=== PATIENT | female | born 1960 | race Hispanic/Latino ===

== ENCOUNTER 2019-09-27 10:07 | Emergency (ER) | payer SELFPAY ==
[2019-09-27] MEDS ORDERED: MORPHINE 4 MG/ML SYR ONE (10:53)
[2019-09-27] MEDS ORDERED: ONDANSETRON 4 MG/2 ML VIAL ONE (10:53)
[2019-09-27] MEDS ORDERED: dexAMETHasone 10 MG/ML VIAL ONE (11:11)
[2019-09-27] MEDS ORDERED: KETOROLAC 30 MG/ML INJ ONE (11:11)
[2019-09-27] MEDS ORDERED: DIAZEPAM 10 MG/2 ML INJ SYRINGE ONE (11:46)
--- NOTE | 2019-09-27 12:32 | EDPHYS ---
Physician Documentation [facility] Name: Philomena Hi Age: 58 yrs Sex: Female : 1960 Arrival Date: 09/27/2019 Time: 10:08 Bed 7 Private MD: ED Physician Nabil Selby HPI: 09/27 11:04 This 58 yrs old Female presents to ER via Ambulatory with complaints of Back jmm Pain - spasms. 11:04 The patient presents with pain that is acute. Onset: The symptoms/episode jmm began/occurred gradually, 1 week(s) ago. The pain radiates to the left leg. Associated signs and symptoms: Pertinent negatives: dysuria, fever, hematuria, incontinence, numbness, tingling, weakness. This is a 58 year old female with a history of of chronic back pain, DM that presents to the ED with complaints of lower back pain which radiates down the left leg. Patient has a history of bulging discs. Denies bowel or bladder issues. . Historical: - Allergies: 10:26 No Known Allergies; ph - PMHx: 10:26 Back pain; Diabetes - NIDDM; ph - Immunization history:: Adult Immunizations up to date. - Social history:: Smoking status: Patient/guardian denies using tobacco. - Ebola Screening: : No symptoms or risks identified at this time. ROS: 11:04 Constitutional: Negative for fever, chills, and weight loss, Cardiovascular: Negative jmm for chest pain, palpitations, and edema, Respiratory: Negative for shortness of breath, cough, wheezing, and pleuritic chest pain. 11:04 Back: Positive for pain with movement. 11:04 MS/extremity: Positive for pain. 11:04 All other systems are negative. Exam: 11:04 Constitutional: This is a well developed, well nourished patient who is awake, alert, jmm and in no acute distress. Head/Face: atraumatic. Eyes: EOMI, no conjunctival erythema appreciated ENT: Moist Mucus Membranes Neck: Trachea midline, Supple Chest/axilla: Normal chest wall appearance and motion. Cardiovascular: Regular rate and rhythm. No edema appreciated Respiratory: Normal respirations, no respiratory distress appreciated Abdomen/GI: Non distended, soft Skin: General appearance color normal 11:04 Back: pain, that is moderate, of the left low back and left mid back, vertebral tenderness, is not appreciated, muscle spasm. 11:04 Neuro: Orientation: is normal, Mentation: is normal, Memory: is normal, Motor: is normal. 11:04 Psych: Behavior/mood is pleasant, cooperative. Vital Signs: 10:25 BP 147 / 109; Pulse 135; Resp 18; Temp 97.8; Pulse Ox 98% on R/A; Weight 99.79 kg; ph 11:26 BP 136 / 80; Pulse 85; Resp 18; Pulse Ox 100% on R/A; sg MDM: 10:33 Patient medically screened. [facility] 12:28 Data reviewed: vital signs, nurses notes. Counseling: I had a detailed discussion with sergio the patient and/or guardian regarding: the historical points, exam findings, and any diagnostic results supporting the discharge/admit diagnosis, the need for outpatient follow up, to return to the emergency department if symptoms worsen or persist or if there are any questions or concerns that arise at home. ED course: Pain reduced in the ED. Patient is able to ambulate. I do not suspect cord compression or cauda equina. Patient is advised to follow up with pcp/ pain management. patient otherwise given strict return precautions. Patient understood and agrees with the plan of care. . 07 10:46 Order name: Saline Lock; Complete Time: 11:02 [facility] Administered Medications: 10:46 CANCELLED (different dose used): morphine 10 mg IVP once; RASS on ADMIN: Combtv4, Very jmm Agttd3, Agttd2, Rstlss1, AlertClm0, Drwsy-1, Lt Sdtn-2, Mod Sdtn-3, Dp Sdtn-4, UnArsble-5 11:02 Drug: Zofran 4 mg Route: IVP; Site: left forearm; hb 11:30 Follow up: Response: No adverse reaction hb 11:02 Drug: morphine 8 mg Route: IVP; Site: left forearm; hb 11:30 Follow up: Response: No adverse reaction hb 11:13 Drug: Ketorolac 30 mg Route: IVP; Site: left forearm; hb 11:45 Follow up: Response: No adverse reaction hb 11:13 Drug: Decadron - Dexamethasone 10 mg Route: IVP; Site: left forearm; hb 11:45 Follow up: Response: No adverse reaction hb 11:45 Drug: Valium 5 mg Route: IVP; Site: left forearm; sg 12:19 Follow up: Response: No adverse reaction hb Disposition: 09/28 07:17 Co-signature as Attending Physician, Nabil Selby MD I agree with the assessment and kdr plan of care. Disposition: 09/27/19 12:31 Discharged to Home. Impression: Low back pain, Sciatica, left side. - Condition is Stable. - Discharge Instructions: Back Pain, Adult, Sciatica. - Medication Reconciliation Form, Thank You Letter, Antibiotic Education, Prescription Opioid Use form. - Follow up: Jas Friend DO; When: 2 - 3 days; Reason: Recheck today's complaints, Continuance of care, Re-evaluation by your physician. Follow up: Bobby Daley MD; When: 2 - 3 days; Reason: Recheck today's complaints, Continuance of care, Re-evaluation by your physician. Signatures: Poli Newsome RN RN sg Rittger, Kevin, MD MD kdr Mickail, Joel, PA PA [facility] Caridad Head RN RN Raquel Anders RN RN Corrections: (The following items were deleted from the chart) 09/27 10:46 10:46 morphine 10 mg IVP once; RASS on ADMIN: Combtv4, Very Agttd3, Agttd2, Rstlss1, jmm AlertClm0, Drwsy-1, Lt Sdtn-2, Mod Sdtn-3, Dp Sdtn-4, UnArsble-5 ordered. [facility] 12:56 12:31 09/27/2019 12:31 Discharged to Home. Impression: Low back pain; Sciatica, left hb side. Condition is Stable. Forms are Medication Reconciliation Form, Thank You Letter, Antibiotic Education, Prescription Opioid Use. Follow up: Jas Friend; When: 2 - 3 days; Reason: Recheck today's complaints, Continuance of care, Re-evaluation by your physician. Follow up: Bobby Daley; When: 2 - 3 days; Reason: Recheck today's complaints, Continuance of care, Re-evaluation by your physician. [facility]
--- NOTE | 2019-09-27 12:32 | ER ---
Nurse's Notes [facility] Name: Philomena Hi Age: 58 yrs Sex: Female : 1960 Arrival Date: 09/27/2019 Time: 10:08 Bed 7 Private MD: Diagnosis: Low back pain;Sciatica, left side Presentation: 09/27 10:23 Presenting complaint: Patient states: Low back pain x 1 week, radiates down R leg, hx ph of slipped disk, has taken Tramadol and Flexaril w/ no relief. Transition of care: patient was not received from another setting of care. Onset of symptoms was September 27, 2019. Risk Assessment: Do you want to hurt yourself or someone else? Patient reports no desire to harm self or others. Initial Sepsis Screen: Does the patient meet any 2 criteria? HR > 90 bpm. Does the patient have a suspected source of infection? No. Patient's initial sepsis screen is negative. 10:23 Method Of Arrival: Ambulatory ph 10:23 Acuity: LISA 2 ph Historical: - Allergies: 10:26 No Known Allergies; ph - PMHx: 10:26 Back pain; Diabetes - NIDDM; ph - Immunization history:: Adult Immunizations up to date. - Social history:: Smoking status: Patient/guardian denies using tobacco. - Ebola Screening: : No symptoms or risks identified at this time. Screenin:02 Abuse screen: Denies threats or abuse. Denies injuries from another. Nutritional hb screening: No deficits noted. Tuberculosis screening: No symptoms or risk factors identified. Fall Risk None identified. Assessment: 11:03 General: Appears in no apparent distress. Behavior is calm, cooperative. Pain: Pain hb currently is 10 out of 10 on a pain scale. Neuro: Level of Consciousness is awake, alert, obeys commands, Oriented to person, place, time, situation. Cardiovascular: Capillary refill < 3 seconds Patient's skin is warm and dry. Respiratory: Airway is patent Respiratory effort is even, unlabored, Respiratory pattern is regular, symmetrical, Breath sounds are clear bilaterally. GI: No signs and/or symptoms were reported involving the gastrointestinal system. : No signs and/or symptoms were reported regarding the genitourinary system. EENT: No signs and/or symptoms were reported regarding the EENT system. Derm: Skin is pink, warm \T\ dry. Musculoskeletal: Reports low back pain that radiates down both legs. 12:00 Reassessment: Patient appears in no apparent distress at this time. Patient and/or hb family updated on plan of care and expected duration. Pain level reassessed. Patient is alert, oriented x 3, equal unlabored respirations, skin warm/dry/pink. 12:56 Reassessment: Patient appears in no apparent distress at this time. Patient and/or hb family updated on plan of care and expected duration. Pain level reassessed. Patient is alert, oriented x 3, equal unlabored respirations, skin warm/dry/pink. Vital Signs: 10:25 BP 147 / 109; Pulse 135; Resp 18; Temp 97.8; Pulse Ox 98% on R/A; Weight 99.79 kg; ph 11:26 BP 136 / 80; Pulse 85; Resp 18; Pulse Ox 100% on R/A; sg ED Course: 10:08 Patient arrived in ED. am2 10:25 Triage completed. ph 10:26 Arm band placed on Patient placed in an exam room. ph 10:27 Roshan Peoples PA is PHCP. jmm 10:27 Nabil Selby MD is Attending Physician. jmm 10:58 Inserted saline lock: 22 gauge in left forearm, using aseptic technique. hb 11:04 Raquel Anders, RN is Primary Nurse. hb 11:04 Patient has correct armband on for positive identification. Bed in low position. Call hb light in reach. Side rails up X 1. 12:31 Jas Friend DO is Referral Physician. [facility] 12:31 Bobby Daley MD is Referral Physician. jm 12:55 No provider procedures requiring assistance completed. IV discontinued, intact, hb bleeding controlled, No redness/swelling at site. Pressure dressing applied. Administered Medications: 10:46 CANCELLED (different dose used): morphine 10 mg IVP once; RASS on ADMIN: Combtv4, Very jmm Agttd3, Agttd2, Rstlss1, AlertClm0, Drwsy-1, Lt Sdtn-2, Mod Sdtn-3, Dp Sdtn-4, UnArsble-5 11:02 Drug: Zofran 4 mg Route: IVP; Site: left forearm; hb 11:30 Follow up: Response: No adverse reaction hb 11:02 Drug: morphine 8 mg Route: IVP; Site: left forearm; hb 11:30 Follow up: Response: No adverse reaction hb 11:13 Drug: Ketorolac 30 mg Route: IVP; Site: left forearm; hb 11:45 Follow up: Response: No adverse reaction hb 11:13 Drug: Decadron - Dexamethasone 10 mg Route: IVP; Site: left forearm; hb 11:45 Follow up: Response: No adverse reaction hb 11:45 Drug: Valium 5 mg Route: IVP; Site: left forearm; sg 12:19 Follow up: Response: No adverse reaction hb Outcome: 12:31 Discharge ordered by . sergio 12:55 Discharged to home ambulatory, with significant other. hb 12:55 Condition: stable 12:55 Discharge instructions given to patient, significant other, Instructed on discharge instructions, follow up and referral plans. medication usage, Demonstrated understanding of instructions, follow-up care, medications. 12:56 Patient left the ED. hb Signatures: Poli Newsome RN Roshan Galan PA PA jmm Hall, Patricia, RN RN Raquel Anders RN RN Aliyah Duffy
[2019-09-27 13:01] VITALS: TEMP 97.8
[2019-09-27 13:03] VITALS: BP 136/80; O2SAT 100
== END 2019-09-27 12:56 | disposition home or self-care (01) ==
LOC: ER 10:07
DX: M54.32 Sciatica, left side (principal)
CPT/HCPCS: 96374; 96375; 99283; J1100; J2405; J3360